=== PATIENT | female | born 1990 | race Two or more races ===

== ENCOUNTER 2020-05-04 10:12 | Outpatient (CLI) | payer OTHER | END 2020-05-04 10:25 | disposition home or self-care (01) | LOC: RX STUDY 10:12 | PROVIDERS: ATTEND Obstetrics & Gynecology | DX: N84.0 Polyp of corpus uteri (principal) ==

== ENCOUNTER → 2021-02-17 | Day surgery (SDC) | payer OTHER | END | disposition home or self-care (01) | LOC: ADM 02-10 09:00 → CIR.AMB 09:00 | PROVIDERS: ATTEND Obstetrics & Gynecology | DX: N84.0 Polyp of corpus uteri (principal); Z20.822 Contact with and (suspected) exposure to COVID-19 ==

== ENCOUNTER → 2021-04-08 10:01 | Outpatient (CLI) | payer OTHER | END | disposition home or self-care (01) | LOC: RAD 10:01 | PROVIDERS: ATTEND Obstetrics & Gynecology | DX: N84.0 Polyp of corpus uteri (principal); N30.00 Acute cystitis without hematuria ==

== ENCOUNTER 2023-09-15 11:47 | Inpatient (IN) | payer OTHER ==
[~2023-09-15] VITALS: Ht 162.6 cm; Wt 68.0 kg
[2023-10-01 23:51] LABS: HEMATOCRIT 33.2 % (36.0-45.00); HEMOGLOBIN 11.5 g/dL (12.0-15.00); MEAN CELL VOLUME 95.4 fL (80.00-100.00); MEAN CORPUSCULAR HEMOGLOBIN 33.2 pg (27.00-32.0); MEAN CORPUSCULAR HGB CONC 34.8 g/dl (32.0-36.0); PLATELET COUNT 206 K/uL (150-450); RED BLOOD COUNT 3.47 M/uL (4.00-6.00); RED CELL DISTRIBUTION WIDTH 15.7 % (11.5-14.5)
[2023-10-02 00:07] LABS: INR 0.98; PROTHROMBIN TIME 10.3 SECONDS (9.0-11.5)
[2023-10-02 00:13] LABS: ALBUMIN 2.5 gm/dL (3.4-5.0); BILIRUBIN TOTAL 0.53 mg/dL (0.3-1.2); CALCIUM 8.7 mg/dL (8.5-10.1); CREATININE SERUM 0.61 mg/dL (0.55-1.02); GFR 112.95; GLOBULINA 3.4 G/DL (2.4-3.5); POTASSIUM 3.6 mEq/L (3.5-5.1); TOTAL PROTEIN 5.9 gm/dL (6.4-8.2)
[2023-10-03 04:39] LABS: HEMATOCRIT 33.1 % (36.0-45.00); MEAN CELL VOLUME 95.6 fL (80.00-100.00); MEAN CORPUSCULAR HEMOGLOBIN 33.1 pg (27.00-32.0); MEAN CORPUSCULAR HGB CONC 34.6 g/dl (32.0-36.0); PLATELET COUNT 187 K/uL (150-450); RED BLOOD COUNT 3.47 M/uL (4.00-6.00); RED CELL DISTRIBUTION WIDTH 15.5 % (11.5-14.5)
[2023-10-03 04:41] LABS: HEMOGLOBIN 11.5 g/dL (12.0-15.00)
[2023-10-05] MEDS ORDERED: OXYC1TAB9 PO (07:55)
[2023-10-05] MEDS ORDERED: KETO10TA2 PO (07:56)
== END 2023-10-05 12:56 | disposition home or self-care (01) | DRG 788 ==
LOC: LDR 10-01 22:30 → O/R 10-02 21:17 → OB/GYN 10-03 01:36
PROVIDERS: Obstetrics & Gynecology Maternal & Fetal Medicine; ADMIT Obstetrics & Gynecology Gynecology; ATTEND Obstetrics & Gynecology Gynecology
PROC: 4A1HXCZ Monitoring of Products of Conception, Cardiac Rate, External Approach (ICD-10-PCS; 2023-10-01)
PROC: 10D00Z1 Extraction of Products of Conception, Low, Open Approach (ICD-10-PCS; principal; 2023-10-02 19:00)
DX: O62.1 Secondary uterine inertia (principal); O33.8 Maternal care for disproportion of other origin; Z3A.39 39 weeks gestation of pregnancy; Z37.0 Single live birth; Z20.822 Contact with and (suspected) exposure to COVID-19

== ENCOUNTER 2023-09-29 11:53 | Outpatient (CLI) | payer OTHER | END 2023-09-29 12:35 | disposition home or self-care (01) | LOC: NST 11:53 | PROVIDERS: ATTEND Obstetrics & Gynecology Gynecology | DX: Z34.83 Encounter for supervision of other normal pregnancy, third trimester (principal) ==